=== PATIENT | female | born 1990 | race Caucasian/White ===

== ENCOUNTER 2020-10-02 12:41 | Emergency (ER) | payer OTHER, SELFPAY ==
--- NOTE | ~2020-10-02 | XR_ITS ---
XR chest 1V portable DATE: 10/02/2020 16:36 INDICATION: Midsternal chest pain for 3 days. Throat burning. TECHNIQUE: Portable AP chest on 10/02/2020 at 1637 hours COMPARISON: None FINDINGS: Normal heart size. No hilar or mediastinal enlargement. No pulmonary infiltrate or consolid ation, pleural effusion or pulmonary vascular congestion or pneumothorax. IMPRESSION: No active cardiopulmonary disease Reviewed, dictated and finalized at location A.
[2020-10-02 12:44] VITALS: BP 117/76; PULSE 65; RESP 20; TEMP 36.2; O2SAT 98
--- NOTE | 2020-10-02 12:47 | ECG_ITS ---
Measurements Intervals [place] Rate: 60 P: 66 SD: 173 QRS: 92 QRSD: 90 T: 66 QT: 386 QTc: 386 Interpretive Statements SINUS RHYTHM RIGHT AXIS DEVIATION INCOMPLETE RIGHT BUNDLE BRANCH BLOCK BASELINE WANDER- AVF BORDERLINE ECG Electronically Signed On 10-02-2020 17:45:19 CDT by Mil Carreon D.O.
[2020-10-02 13:26] VITALS: PULSE 56
--- NOTE | 2020-10-02 14:23 | ED.GENADULT ---
HPI - General Adult General Chief complaint: Chest Pain Stated complaint: CHEST PAIN Time Seen by Provider: 10/02/20 13:43 Source: patient and family Mode of arrival: ambulatory Limitations: no limitations History of Present Illness HPI narrative: Patient is a 30-year-old female who presents to emergency department for intermittent right substernal chest pain that is an aching pain present for 3 days denies any recent illness injury or trauma or other complaints no similar occurrence in the past does not take anything for her symptoms does have history of tobacco abuse Related Data Home Medications Medication Instructions Recorded Confirmed No Home Medications 10/02/20 10/02/20 Allergies Allergy/AdvReac Type Severity Reaction Status Date / Time No Known Allergies Allergy Verified 10/02/20 12:47 Review of Systems Review of Systems: All systems reviewed & are unremarkable except as noted in HPI and below PMFSH Surgical History Surgical History H/O tubal ligation Family History Family History Mother Hypertension Family history of elevated blood lipids Sibling Family history of malignant neoplasm of cervix Other Cerebrovascular accident Diabetes mellitus Family history of coronary artery disease Social History Social History (Updated 10/02/20 @ 14:24 by Darvin Dooley PA-C) Smoking status: Current every day smoker Second hand tobacco smoke exposure: No Smoking end date: 06/18/13 Alcohol intake: former Substance use: never Gender identity (if verbalized by the patient): Female Exam Narrative: Exam Narrative: GENERAL: Well-appearing, well-nourished, and in no acute distress. HEAD: Normocephalic, atraumatic. EYES: PERRLA and EOMI. ENT: Nares clear, no rhinorrhea or epistaxis. Mucous membranes moist. CHEST: Clear to auscultation. No respiratory distress. No wheezes rales or rhonchi HEART: Regular rate and rhythm. No murmur heard. Normal peripheral pulses. ABDOMEN: Soft, nontender, nondistended EXTREMITIES: Normal range of motion. No edema. SKIN: Warm, dry, no rash. NEURO: No focal deficits. Alert and oriented x3. PSYCH: Normal mood and affect. Course Course Emergency Course: Patient in the room no distress aware of case findings treatment plan and diagnosis agreeing to follow-up as instructed felt appropriate for outpatient reevaluation no high risk changes in the evaluation Vital Signs Vital signs: Vital Signs Temperature 97.2 F L 10/02/20 12:44 Pulse Rate 65 10/02/20 12:44 Respiratory Rate 20 10/02/20 12:44 Blood Pressure 117/76 10/02/20 12:44 Pulse Oximetry 98 10/02/20 12:44 Temperature 97.2 F L 10/02/20 12:44 Pulse Rate 61 10/02/20 16:20 Respiratory Rate 14 10/02/20 16:20 Blood Pressure 105/75 10/02/20 16:20 Pulse Oximetry 99 10/02/20 16:20 Medical Decision Making MDM Narrative Medical decision making narrative: Patients EKGs and labs are without significant high risk changes. Cardiac risk factors were reviewed. Patient is felt likely to be low risk for ACS and reasonable for further risk stratification testing as an outpatient. Pain was not sudden or maximal in onset without tearing or ripping. quality. No other signs or symptoms to suggest aortic dissection. A low-risk Wells criteria is noted. PE is felt to be unlikely. No pneumonia or URI symptoms were seen on evaluation today. Patient is felt to b reasonable for continued evaluation as an outpatient. Vital Signs Vital Signs: Vital Signs Temperature 97.2 F L 10/02/20 12:44 Pulse Rate 65 10/02/20 12:44 Respiratory Rate 20 10/02/20 12:44 Blood Pressure 117/76 10/02/20 12:44 Pulse Oximetry 98 10/02/20 12:44 Temperature 97.2 F L 10/02/20 12:44 Pulse Rate 61 10/02/20 16:20 Respiratory Rate 14 10/02/20 16:20 Blood Pressure 105/75 04
[2020-10-02 15:27] LABS: Troponin I < 0.012 ng/mL (0.000-0.034)
[2020-10-02 15:36] LABS: D Dimer 0.27 ug/mL (<0.48)
[2020-10-02 16:20] VITALS: BP 105/75; PULSE 61; RESP 14; O2SAT 99
[2020-10-02] MEDS: KETOROLAC (*BKC) 60 MG/2 ML VIAL IM (16:21)
[2020-10-02 17:08] VITALS: BP 113/71; PULSE 58; RESP 18; O2SAT 100
== END 2020-10-02 17:08 | disposition home or self-care (01) ==
PROVIDERS: Emergency Medicine Emergency Medical Services; Emergency Provider Emergency Medicine; PCP Family Medicine
DX: R07.2 Precordial pain (principal); Z87.891 Personal history of nicotine dependence; I45.10 Unspecified right bundle-branch block
CPT/HCPCS: 36415; 71045; 84484; 85380; 93005; 96372; 99284; J1885

== ENCOUNTER 2020-10-05 17:53 | Emergency (ER) | payer OTHER, SELFPAY ==
--- NOTE | ~2020-10-05 | XR_ITS ---
EXAMINATION: XR chest 1V portable 10/05/2020 21:46 INDICATION: Sternal chest pain PROCEDURE: AP portable chest COMPARISON: 10/02/2020 FINDINGS: The lungs are clear. The cardiomediastinal silhouette is within normal limits. There are no pleural effusions. There is no pneumothorax suspected. IMPRESSION: 1: NO ACUTE CARDIOPULMONARY DISEASE. Reviewed, dictated and finalized at location A.
[2020-10-05 18:32] VITALS: BP 111/70; PULSE 57; RESP 16; TEMP 36.7; O2SAT 100
--- NOTE | 2020-10-05 18:32 | ECG_ITS ---
Measurements Intervals [place] Rate: 59 P: 54 HI: 177 QRS: 33 QRSD: 77 T: 16 QT: 367 QTc: 365 Interpretive Statements SINUS BRADYCARDIA BORDERLINE ST-T WAVE ABNORMALITY- INFERIOR LEADS BASELINE ARTIFACT- I, III, AVL BORDERLINE ECG Electronically Signed On 10-05-2020 18:47:04 CDT by Mil Carreon D.O.
--- NOTE | 2020-10-05 21:37 | ED.CHESTPAIN ---
HPI - Chest Pain General Chief Complaint: Chest Pain <Darvin Dooley PA-C - Last Filed: 10/05/20 22:58> Stated Complaint: chest pain <Darvin Dooley PA-C - Last Filed: 10/05/20 22:58> Time Seen by Provider: 10/05/20 21:23 <Darvin Dooley PA-C - Last Filed: 10/05/20 22:58> Source: patient, family and old records reviewed <Darvin Dooley PA-C - Last Filed: 10/05/20 22:58> Mode of arrival: ambulatory <Darvin Dooley PA-C - Last Filed: 10/05/20 22:58> Limitations: no limitations <Darvin Dooley PA-C - Last Filed: 10/05/20 22:58> History of Present Illness HPI narrative: Patient a 30-year-old female who presents back to emergency department after being evaluated by primary care and instructed to come to the emergency department for continued midsternal chest pain that is been going on now for almost a week was seen in the emergency department on the had evaluation no high risk changes and was discharged home. Patient seen by primary care today was given cardiology follow-up and instructed to come back to the ER. Patient has mild aching pain of the mid sternum. <Darvin Dooley PA-C - Last Filed: 10/05/20 22:58> Related Data Allergies/Adverse Reactions: Allergies Allergy/AdvReac Type Severity Reaction Status Date / Time No Known Allergies Allergy Verified 10/02/20 12:47 <Darvin Dooley PA-C - Last Filed: 10/05/20 22:58> Review of Systems Review of Systems: All systems reviewed & are unremarkable except as noted in HPI and below <Darvin Dooley PA-C - Last Filed: 10/05/20 22:58> [facility] Surgical History Surgical History: Surgical History H/O tubal ligation <Darvin Dooley PA-C - Last Filed: 10/05/20 22:58> Family History Family History: Family History Mother Hypertension Family history of elevated blood lipids Sibling Family history of malignant neoplasm of cervix Other Cerebrovascular accident Diabetes mellitus Family history of coronary artery disease <Darvin Dooley PA-C - Last Filed: 10/05/20 22:58> Social History Social History: Social History Smoking status: Current every day smoker Second hand tobacco smoke exposure: No Smoking end date: 06/18/13 Alcohol intake: former Substance use: never Gender identity (if verbalized by the patient): Female <Darvin Dooley PA-C - Last Filed: 10/05/20 22:58> Exam Narrative: Exam Narrative: GENERAL: Well-appearing, well-nourished, and in no acute distress. HEAD: Normocephalic, atraumatic. EYES: PERRLA and EOMI. ENT: Nares clear, no rhinorrhea or epistaxis. Mucous membranes moist. CHEST: Clear to auscultation. No respiratory distress. No wheezes rales or rhonchi HEART: Regular rate and rhythm. No murmur heard. Normal peripheral pulses.. Reproducible mid chest wall tenderness to palpation ABDOMEN: Soft, nontender, nondistended EXTREMITIES: Normal range of motion. No edema. SKIN: Warm, dry, no rash. NEURO: No focal deficits. Alert and oriented x3. Cranial nerves II through XII grossly intact. Normal speech PSYCH: Normal mood and affect. <Darvin Dooley PA-C - Last Filed: 10/05/20 22:58> Course Course Emergency Course: Patient in the room no distress aware of case findings treatment plan diagnosis <Darvin Dooley PA-C - Last Filed: 10/05/20 22:58> Vital Signs Vital signs: Vital Signs Temperature 98.1 F 10/05/20 18:32 Pulse Rate 57 L 10/05/20 18:32 Respiratory Rate 16 10/05/20 18:32 Blood Pressure 111/70 10/05/20 18:32 Pulse Oximetry 100 10/05/20 18:32 Temperature 98.1 F 10/05/20 18:32 Pulse Rate 63 10/05/20 23:30 Respiratory Rate 18 10/05/20 23:30 Blood Pressure 113/65 10/05/20 23:30 Pulse Oximetry 99 10/05/20
[2020-10-05 22:38] LABS: Basophils Absolute Auto 0.1 K/mm3 (0.0-0.1); Basophils Percent Auto 0.6 % (0.2-1.2); Eosinophils Absolute Auto 0.2 K/mm3 (0-0.3); Eosinophils Percent Auto 1.9 % (0-4.4); Hematocrit 41.2 % (37.0-47.0); Hemoglobin 13.6 g/dL (12.0-15.0); Immature Granulocyte Absolute 0.04 K/mm3 (0.00-0.031); Immature Granulocyte Percent A 0.4 % (0-0.5); Lymphocytes Absolute Auto 3.37 K/mm3 (0.9-3.2); Lymphocytes Percent Auto 31.3 % (18.3-44.2); Mean Corpuscular Hemoglobin 29.6 pg (26-34); Mean Corpuscular Volume 89.8 fl (80-100); Mean Platelet Volume 10.4 fl (7.4-10.4); Monocytes Absolute Auto 0.7 K/mm3 (0.1-0.6); Neutrophils Absolute Auto 6.4 K/mm3 (1.3-6.7); Neutrophils Percent Auto 59.8 % (45.5-73.1); Platelet Count Result 230 k/mm3 (150-375); Red Blood Count 4.59 M/mm3 (4.2-5.4); Red Cell Distribution Width 12.2 % (11.5-14.5); White Blood Count 10.8 K/mm3 (4.5-10.0)
[2020-10-05 22:50] LABS: Alanine Aminotransferase 8 U/L (4-35); Albumin Level 4.9 g/dL (3.5-5.1); Alkaline Phosphatase 44 U/L (38-126); Anion Gap 7 mmol/L (8-16); Aspartate Amino Transferase 17 U/L (14-36); Bilirubin,Total 0.2 mg/dL (0.2-1.3); Blood Urea Nitrogen 11 mg/dL (7-17); Calcium 9.2 mg/dL (8.4-10.2); Carbon Dioxide 27 mmol/L (22-30); Chloride 106 mmol/L (98-107); Estimated CRCL calculation 83 ml/min; Estimated Glomerular Filt Rate > 60; Glucose 93 mg/dL (65-105); Lipase 253 U/L (23-300); Potassium 4.1 mmol/L (3.4-5.0); Sodium 140 mmol/L (137-145)
[2020-10-05 23:02] LABS: Troponin I < 0.012 ng/mL (0.000-0.034)
[2020-10-05 23:30] VITALS: BP 113/65; PULSE 63; RESP 18; O2SAT 99
== END 2020-10-05 23:40 | disposition home or self-care (01) ==
PROVIDERS: Emergency Medicine Emergency Medical Services; Emergency Provider General Practice; PCP Emergency Medicine
DX: R07.9 Chest pain, unspecified (principal)
CPT/HCPCS: 36415; 71045; 80053; 83690; 84484; 85025; 93005; 99284

== ENCOUNTER 2020-11-25 10:40 | Emergency (ER) | payer OTHER, SELFPAY ==
--- NOTE | ~2020-11-25 | US_ITS ---
EXAMINATION: US pelvic complete w TV EXAM DATE: 11/25/2020 13:00 INDICATION: Rule out torsion LLQ PAIN. TECHNIQUE: Pelvic transabdominal and transvaginal sonogram was performed. There are multiple graysca le and Doppler images available for interpretation. Comparison is made to prior examination from 02/05. FINDINGS: Uterus measures 8.1 x 4.1 x 5.1 cm, is anteverted and morphologically normal. Endometrial stripe measures 10 mm, within normal limits. There is no free pelvic fluid. Right adnexa: The ovary measures 3.3 x 2.0 x 1.8 cm and is morphologically normal. Ovarian vascular f low confirmed. Left adnexa: The ovary measures 3.2 x 2.0 x 2.9 cm and is morphologically normal, contains the domina nt physiologic follicle or small hemorrhagic cyst measuring up to 2.4 cm. Ovarian vascular flow confi rmed. IMPRESSION: 1. No acute findings. 2. Left ovarian dominant follicle and/or small hemorrhagic cyst Reviewed, dictated and finalized at location A.
[2020-11-25 10:50] VITALS: BP 120/76; PULSE 79; RESP 16; TEMP 36.8; O2SAT 100
--- NOTE | 2020-11-25 11:34 | ED.ABDPAIN ---
HPI - Abdominal Pain General Chief Complaint: Abdominal Pain Stated Complaint: Pelvic pain on my L side Time Seen by Provider: 11/25/20 10:48 Source: patient Mode of arrival: ambulatory Limitations: no limitations History of Present Illness HPI narrative: Patient is a 30-year-old female who presents complaining of left pelvic pain. She reports pain increases with palpation. She reports urinary frequency, denies dysuria or other complaints. She denies fever, nausea, vomiting, diarrhea or constipation. She has a history of a tubal ligation denies possibility of . She reports sudden onset set of pain at 0500 this a.m. She denies significant medical history. She denies all other complaints at this time. Patient reports pain is 8/10 and denies taking [id number] medications for pain prior to arrival. MD elicited complaint: other (pelvic pain) Pertinent past history: none Related Data Allergies Allergy/AdvReac Type Severity Reaction Status Date / Time No Known Allergies Allergy Verified 11/25/20 11:18 Review of Systems Review of Systems: Narrative: CONSTITUTIONAL: Denies fever, chills, or sweats. EYES: Denies visual changes, redness, or discharge. ENT: Denies rhinorrhea, congestion, sore throat, or otalgia. CARDIOVASCULAR: Denies chest pain, palpitations, or edema. RESPIRATORY: Denies cough or dyspnea. GASTROINTESTINAL: Denies abdominal pain, nausea, vomiting, or diarrhea. GENITOURINARY: Denies dysuria or hematuria. Reports left pelvic pain SKIN: Denies rash or itching. MUSCULOSKELETAL: Denies back pain, joint pain, or myalgia. NEUROLOGIC: Denies headache, numbness, dizziness, or weakness. PSYCHIATRIC: Denies anxiety or depression. [facility] Surgical History Surgical History H/O tubal ligation Family History Family History Mother Hypertension Family history of elevated blood lipids Sibling Family history of malignant neoplasm of cervix Other Cerebrovascular accident Diabetes mellitus Family history of coronary artery disease Social History Social History Smoking status: Current every day smoker Second hand tobacco smoke exposure: No Smoking end date: 06/18/13 Alcohol intake: former Substance use: never Gender identity (if verbalized by the patient): Female Comments At the time of signature, I have reviewed and agree with nursing past medical, surgical, social, and family history unless otherwise noted. Please see nursing chart for further information. There is no relevant family history pertinent to the presenting complaint. Exam Narrative: Exam Narrative: GENERAL: Well-appearing, well-nourished, and in no acute distress. HEAD: Normocephalic, atraumatic. EYES: No redness or drainage. Conjunctiva are normal. ENT: Mucous membranes pink and moist. CHEST: No respiratory distress. Clear to auscultation. HEART: Regular rate and rhythm. No murmur appreciated. Normal peripheral pulses. GI: Soft, nontender without rebound, or guarding. No distention. Bowel sounds normal in all quadrants. : Left pelvic pain with palpation. MUSCULOSKELETAL: No bony tenderness. EXTREMITIES: Normal range of motion. No edema. SKIN: Warm, dry, no rash. NEURO: No focal deficits. Alert and oriented x3. Gait steady. PSYCH: Normal affect. No signs of depression or anxiety. Course Vital Signs Vital signs: Vital Signs Temperature 36.8 C 11/25/20 10:50 Pulse Rate 79 11/25/20 10:50 Respiratory Rate 16 11/25/20 10:50 Blood Pressure 120/76 11/25/20 10:50 Pulse Oximetry 100 11/25/20 10:50 Temperature 36.8 C 11/25/20 10:50 Pulse Rate 67 11/25/20 14:34 Respiratory Rate 16 11/25/20 14:34 Blood Pressure 107/64 11/25/20 14:34 Pulse Oximetry 99 11/25/20 14:34 Reviewed MDM - Abdominal Pain MDM Narrative
[2020-11-25 11:48] LABS: Basophils Absolute Auto 0.1 K/mm3 (0.0-0.1); Basophils Percent Auto 0.6 % (0.2-1.2); Eosinophils Absolute Auto 0.2 K/mm3 (0-0.3); Eosinophils Percent Auto 2.1 % (0-4.4); Hematocrit 44.7 % (37.0-47.0); Hemoglobin 14.6 g/dL (12.0-15.0); Immature Granulocyte Absolute 0.04 K/mm3 (0.00-0.031); Immature Granulocyte Percent A 0.4 % (0-0.5); Lymphocytes Absolute Auto 2.26 K/mm3 (0.9-3.2); Lymphocytes Percent Auto 21.2 % (18.3-44.2); Mean Corpuscular HGB Conc 32.7 g/dl (32-36); Mean Corpuscular Hemoglobin 29.3 pg (26-34); Mean Corpuscular Volume 89.6 fl (80-100); Mean Platelet Volume 10.3 fl (7.4-10.4); Monocytes Absolute Auto 0.7 K/mm3 (0.1-0.6); Monocytes Percent Auto 6.7 % (2.6-8.5); Neutrophils Absolute Auto 7.4 K/mm3 (1.3-6.7); Platelet Count Result 255 k/mm3 (150-375); Red Blood Count 4.99 M/mm3 (4.2-5.4); Red Cell Distribution Width 12.5 % (11.5-14.5); White Blood Count 10.6 K/mm3 (4.5-10.0)
[2020-11-25 11:51] LABS: Add Urine Microscopic? YES; Appearance Urine Clear (Clear); Bacteria Urine Trace /hpf; Bilirubin Urine Negative (Negative); Blood Urine Negative (Negative); Color Urine Straw (Yellow); Glucose Urine UA Negative (Negative); Ketones Urine Negative (Negative); Leukocyte Esterase Ur Trace LEU/UL (Negative); Nitrate Urine Negative (Negative); Protein Urine Negative (Negative); RBC Urine 0-2 /hpf (0-2); Specific Grav Ur 1.006 (1.001-1.035); Squamous Epithelial Cell Urine Occasional /hpf (Few); Urobilinogen Urine Negative mg/dL (<2.0)
[2020-11-25 11:58] LABS: Alanine Aminotransferase 8 U/L (4-35); Albumin Level 4.5 g/dL (3.5-5.1); Alkaline Phosphatase 35 U/L (38-126); Anion Gap 9 mmol/L (8-16); Aspartate Amino Transferase 17 U/L (14-36); Bilirubin,Total 0.3 mg/dL (0.2-1.3); Blood Urea Nitrogen 6 mg/dL (7-17); Calcium 9.3 mg/dL (8.4-10.2); Carbon Dioxide 25 mmol/L (22-30); Chloride 108 mmol/L (98-107); Estimated CRCL calculation 94 ml/min; Estimated Glomerular Filt Rate > 60; Glucose 87 mg/dL (65-105); Lipase 120 U/L (23-300); Potassium 3.9 mmol/L (3.4-5.0); Sodium 142 mmol/L (137-145)
[2020-11-25 14:34] VITALS: BP 107/64; PULSE 67; RESP 16; O2SAT 99
== END 2020-11-25 14:37 | disposition home or self-care (01) ==
PROVIDERS: Emergency Medicine; Emergency Provider Nurse Practitioner; PCP Emergency Medicine
DX: N83.202 Unspecified ovarian cyst, left side (principal); N39.0 Urinary tract infection, site not specified
CPT/HCPCS: 36415; 76830; 76856; 80053; 81001; 81025; 83690; 85025; 99284

== ENCOUNTER 2021-02-01 07:51 | Outpatient (CLI) | payer OTHER, SELFPAY ==
--- NOTE | ~2021-02-01 | CT_ITS ---
EXAMINATION: CT shoulder RT w con DATE: 02/01/2021 08:37 INDICATION: Posterior right shoulder mass with pain and swelling TECHNIQUE: High resolution computed tomography (CT) of the right shoulder was performed without intra venous contrast. Additional sagittal and coronal reconstructions were performed. Automated exposure c ontrol and iterative reconstruction technique were employed. The dose-length product was 155.97 mGy-c m. COMPARISON: Right shoulder radiographs dated 01/06/2015 FINDINGS: Bone alignment is normal. No fracture. Glenohumeral and acromioclavicular joint spaces are normal. No glenohumeral joint effusion. Soft tissues are unremarkable with no abnormal soft tissue mass or flui d collections identified. No evident edema or inflammatory fat stranding. Normal right axillary lymph nodes which are comprised primarily of prominent central fatty bibi. Brachial plexus appears unremar kable. Minimal paraseptal emphysema scattered along the periphery of the right upper lobe. Calcified right paratracheal lymph node consistent with old granulomatous disease. IMPRESSION: 1. Normal right shoulder with no abnormal masses or fluid collections identified. Reviewed, dictated and finalized at location A. IMPRESSION: 1. Normal right shoulder with no abnormal masses or fluid collections identifie d.
== END 2021-02-01 07:52 | disposition home or self-care (01) ==
PROVIDERS: PCP Emergency Medicine; Visit Provider Surgery
DX: R22.31 Localized swelling, mass and lump, right upper limb (principal)
CPT/HCPCS: 73201; Q9967

== ENCOUNTER 2021-08-22 09:45 | Emergency (ER) | payer OTHER, SELFPAY ==
[2021-08-22 09:53] VITALS: BP 105/64; PULSE 68; RESP 16; TEMP 35.8; O2SAT 100
--- NOTE | 2021-08-22 09:55 | ED.SKABFB ---
HPI - Skin/Abscess/Foreign Bdy General Chief complaint: Skin/Abscess/Foreign Body Stated complaint: Knot behind Ear Time Seen by Provider: 08/22/21 09:55 Source: patient, RN notes reviewed and old records reviewed Mode of arrival: ambulatory Limitations: no limitations History of Present Illness HPI narrative: 31-year-old female presents to the [facility] with a red raised area in the hairline behind right ear. No treatment prior to arrival. States is been there 1-2 days Related Data Allergies Allergy/AdvReac Type Severity Reaction Status Date / Time No Known Allergies Allergy Verified 08/22/21 10:06 Review of Systems Review of Systems: All systems reviewed & are unremarkable except as noted in HPI and below Constitutional: Constitutional: Reports no additional constitutional complaints, Denies chills and Denies fever(s) Eyes: Eyes: Reports no additional eye complaints ENT: Reports system reviewed and no additional complaints, except as documented Cardiovascular: Cardiovascular: Reports no additional cardiovascular complaints, Denies chest pain and Denies dyspnea Respiratory: Respiratory: Reports no additional respiratory complaints, Denies cough and Denies dyspnea Gastrointestinal: Gastrointestinal: Reports no additional gastrointestinal complaints, Denies abdominal pain, Denies nausea and Denies vomiting Musculoskeletal: Musculoskeletal: Reports no additional musculoskeletal complaints Integumentary/Breasts: Skin/Breast: Reports as per HPI and Reports erythema (Half centimeter red raised area behind right ear, hairline) Neurologic: Reports system reviewed and no additional complaints, except as documented Psychiatric: Psychiatric: Reports no additional psychiatric complaints Allergic/Immunologic: Allergic/Immunologic: Reports no additional allergic/immunologic complaints PMFSH Surgical History Surgical History H/O tubal ligation Family History Family History Mother Hypertension Family history of elevated blood lipids Sibling Family history of malignant neoplasm of cervix Other Cerebrovascular accident Diabetes mellitus Family history of coronary artery disease Social History Social History Smoking status: Current every day smoker Second hand tobacco smoke exposure: No Smoking end date: 06/18/13 Alcohol intake: former Substance use: never Gender identity (if verbalized by the patient): Female Comments At the time of my signature, I reviewed and agree with the nursing past medical, surgical, social, and family history. There is no relevant family history pertinent to the patient complaint. Exam Const: General: cooperative, healthy appearing, no acute distress, well developed, alert and awake Nutritional Appearance: well nourished Orientation/consciousness: patient oriented x3 Limitations: no limitations HENMT: Head: normal to inspection and No palpable skull fracture present Ears: hearing grossly normal bilaterally, external ears normal, TM's normal bilaterally and EAC's normal General nose exam: Normal external nose present Face and sinus: normal facial exam and face symmetric Eyes: Pupils: Equal, round and reactive pupils present Neck: Neck: normal visual inspection, no lymphadenopathy and no meningeal signs Chest: Chest palpation & inspection: normal inspection of the chest Resp: Effort & Inspection: normal respiratory effort and no use of accessory muscles Auscultation: clear to auscultation bilaterally, no crackles, no rales, no rhonchi and no wheezes Cardio: Rate: regular rate Rhythm: regular rhythm Skin: Wounds: no wounds Other: Half centimeter red raised area without increased warmth noted. Wide fluctuant top. Neuro: General: patient oriented x3, gait normal, moves all extremities, no meningeal signs
== END 2021-08-22 10:05 | disposition home or self-care (01) ==
PROVIDERS: Emergency Provider Nurse Practitioner; PCP Emergency Medicine
DX: L73.1 Pseudofolliculitis barbae (principal); Z87.891 Personal history of nicotine dependence
CPT/HCPCS: 87070; 87075; 87147; 87181; 87186; 87205; 99213; G0463

== ENCOUNTER 2023-06-24 19:50 | Emergency (ER) | payer OTHER, SELFPAY ==
--- NOTE | ~2023-06-24 | XR_ITS ---
EXAMINATION: XR chest 2V DATE: 06/24/2023 20:30 INDICATION: Chest pain TECHNIQUE: PA and lateral views of the chest are obtained. COMPARISON: 10/05/2020 FINDINGS: The lungs are free of acute opacities. No pleural effusion or pneumothorax. The cardiomedia stinal silhouette is normal. The visualized bones and soft tissues are unremarkable. IMPRESSION: 1. No acute cardiopulmonary abnormality. Reviewed, dictated and finalized at location F. T OPERATIONS COORDINATOR
--- NOTE | 2023-06-24 19:50 | ECG_ITS ---
Measurements Intervals [place] Rate: 81 P: 60 MN: 175 QRS: 37 QRSD: 80 T: 33 QT: 368 QTc: 427 Interpretive Statements SINUS RHYTHM BORDERLINE ST-T WAVE ABNORMALITY- DIFFUSE LEADS BASELINE ARTIFACT- I, III, AVR, AVL, AVF, V1-V6 BORDERLINE ECG COMPARED TO ECG 10/05/2020 18:39:06 SINUS RHYTHM NOW PRESENT NO SIGNIFICANT CHANGES Electronically Signed On 06-25-2023 6:49:45 INVERTEBRATE PALEONTOLOGIST by Mil Carreon D.O.
[2023-06-24 20:00] VITALS: BP 113/75; PULSE 74; RESP 16; TEMP 36.6; O2SAT 100
[2023-06-24 20:07] LABS: Basophils Absolute Auto 0.1 K/mm3 (0.0-0.1); Basophils Percent Auto 0.7 % (0.2-1.2); Eosinophils Absolute Auto 0.4 K/mm3 (0-0.3); Eosinophils Percent Auto 3.5 % (0-4.4); Hematocrit 39.8 % (37.0-47.0); Hemoglobin 13.2 g/dL (12.0-15.0); Immature Granulocyte Absolute 0.02 K/mm3 (0.00-0.031); Immature Granulocyte Percent A 0.2 % (0-0.5); Lymphocytes Percent Auto 31.5 % (18.3-44.2); Mean Corpuscular HGB Conc 33.2 g/dl (32-36); Mean Corpuscular Hemoglobin 29.3 pg (26-34); Mean Corpuscular Volume 88.2 fl (80-100); Mean Platelet Volume 10.1 fl (7.4-10.4); Monocytes Absolute Auto 0.9 K/mm3 (0.1-0.6); Monocytes Percent Auto 8.8 % (2.6-8.5); Neutrophils Absolute Auto 5.6 K/mm3 (1.3-6.7); Neutrophils Percent Auto 55.3 % (45.5-73.1); Platelet Count Result 268 k/mm3 (150-375); Red Blood Count 4.51 M/mm3 (4.2-5.4); Red Cell Distribution Width 12.4 % (11.5-14.5); White Blood Count 10.2 K/mm3 (4.5-10.0)
[2023-06-24 20:21] LABS: Alanine Aminotransferase 10 U/L (6-35); Albumin Level 4.4 g/dL (3.5-5.1); Alkaline Phosphatase 47 U/L (38-126); Anion Gap 9 mmol/L (8-16); Aspartate Amino Transferase 22 U/L (14-36); Bilirubin,Total 0.4 mg/dL (0.2-1.3); Blood Urea Nitrogen 10 mg/dL (7-17); Calcium 9.2 mg/dL (8.4-10.2); Carbon Dioxide 23 mmol/L (22-30); Chloride 107 mmol/L (98-107); Estimated CRCL calculation 94 ml/min; Estimated Glomerular Filt Rate > 60; Glucose 93 mg/dL (65-110); Lipase 391 U/L (23-300); Potassium 3.8 mmol/L (3.4-5.0); Sodium 139 mmol/L (137-145)
[2023-06-24 20:32] LABS: Troponin I < 0.012 ng/mL (0.000-0.034)
[2023-06-24 20:44] LABS: Partial Thromboplastin Time 29.5 SECONDS (22.3-36.8); Prothrombin Time 13.7 Seconds (11.1-14.7)
--- NOTE | 2023-06-24 23:12 | ECG_ITS ---
Measurements Intervals [place] Rate: 72 P: 76 WI: 212 QRS: 55 QRSD: 74 T: 42 QT: 384 QTc: 422 Interpretive Statements SINUS RHYTHM WITH SINUS ARRHYTHMIA WITH FIRST DEGREE AV BLOCK BORDERLINE T WAVE ABNORMALITY- ANTERIOR LEADS BASELINE ARTIFACT- I, II, III, AVR, AVL, AVF, V1-V6 BORDERLINE ECG COMPARED TO ECG 06/24/2023 19:57:09 SINUS ARRHYTHMIA NOW PRESENT FIRST DEGREE AV BLOCK NOW PRESENT Electronically Signed On 06-25-2023 6:57:23 SPANNER OPERATOR by Mil Carreon D.O.
[2023-06-24 23:47] LABS: Troponin I < 0.012 ng/mL (0.000-0.034)
[2023-06-25 00:14] VITALS: BP 115/67; PULSE 49; RESP 17; O2SAT 100
[2023-06-25 00:16] VITALS: BP 107/65; PULSE 49; RESP 7; O2SAT 100
--- NOTE | 2023-06-25 01:00 | ED.CHESTPAIN ---
HPI - Chest Pain General Chief Complaint: Chest Pain Stated Complaint: chest pain Time Seen by Provider: 06/25/23 00:35 Source: patient Mode of arrival: ambulatory Limitations: no limitations History of Present Illness HPI narrative: Patient is a 33-year-old female who presents the ED with report of right-sided chest pain. Patient reports pain has been intermittent for the last couple of weeks, but became were severe and constant today. Pain worse with deep breathing, coughing. She notes she had influenza a few weeks ago and has had a mild persistent cough. She tried taking ibuprofen for her pain today but denied improvement. Denies significant shortness of breath. Denies lower extremity pain or swelling. Denies fevers, abdominal pain, N/V. Patient denies previous cardiac issues. Denies history of hypertension, hyperlipidemia, diabetes, family history of heart disease. She is a smoker. Related Data Allergies Allergy/AdvReac Type Severity Reaction Status Date / Time No Known Allergies Allergy Verified 06/25/23 01:20 Review of Systems Review of Systems: CONSTITUTIONAL: Denies fever, chills, or sweats. CARDIOVASCULAR: See HPI. RESPIRATORY: See HPI. GASTROINTESTINAL: Denies abdominal pain, nausea, vomiting, or diarrhea. All systems reviewed & are unremarkable except as noted in HPI and below PMFSH Surgical History Surgical History H/O tubal ligation Family History Family History Mother Hypertension Family history of elevated blood lipids Sibling Family history of malignant neoplasm of cervix Other Cerebrovascular accident Diabetes mellitus Family history of coronary artery disease Social History Social History Smoking status: Current every day smoker Second hand tobacco smoke exposure: No Smoking end date: 06/18/13 Alcohol intake: former Substance use: never Gender identity (if verbalized by the patient): Female Exam Narrative: GENERAL: Anxious appearing, thin, non-toxic, in no acute distress. HEAD: Normocephalic, atraumatic. RESPIRATORY: Airway patent, respirations nonlabored. Clear to auscultation bilaterally, no rales, rhonchi, wheezing. CARDIOVASCULAR: Tachycardic with regular rhythm without murmurs, rubs, or gallops. ABDOMINAL: Soft, nontender, nondistended. Normoactive BS. MUSCULOSKELETAL: Moves all extremities. No gross deformities. Right-sided anterior chest wall tenderness to palpation, producing pain. SKIN: Warm, dry, normal color. NEURO: A&O X3. Speech clear. Cranial nerves II-XII grossly intact. Steady gait. No ataxic movements. PSYCHIATRIC: Tearful, anxious. Normal interaction. Course Vital Signs Vital signs: Vital Signs Temperature 98 F 06/24/23 20:00 Pulse Rate 74 06/24/23 20:00 Respiratory Rate 16 06/24/23 20:00 Blood Pressure 113/75 06/24/23 20:00 Pulse Oximetry 100 06/24/23 20:00 Oxygen Delivery Room Air 06/24/23 20:00 Temperature 98 F 06/24/23 20:00 Pulse Rate 58 L 06/25/23 02:00 Respiratory Rate 20 06/25/23 02:00 Blood Pressure 122/70 06/25/23 02:00 Pulse Oximetry 100 06/25/23 02:00 Oxygen Delivery Room Air 06/24/23 20:00 MDM - Chest Pain MDM Narrative Medical decision making narrative: Patient presented to ED with several week history of right-sided chest pain, worsened & constant since today. Pleuritic nature to pain. Vitals stable upon arrival. Upon my evaluation, patient was tachycardic, very anxious, tearful. Anterior chest wall tenderness to palpation on exam, reproducing pain. Does report recent influenza infection. CXR clear. No focal consolidation. EKG without concerning changes. Troponin negative x2. HEART score = 1 based on smoking Hx. No significant RFs for ACS. D-dimer within normal limits. Remainder
[2023-06-25 01:01] VITALS: BP 114/71; PULSE 51; RESP 13; O2SAT 100
[2023-06-25] MEDS: ACETAMINOPHEN 500 MG TABLET 1000 MG PO (01:18)
[2023-06-25 01:38] LABS: D Dimer < 0.27 ug/mL (<0.48)
[2023-06-25 02:00] VITALS: BP 122/70; PULSE 58; RESP 20; O2SAT 100
[2023-06-25] MEDS: KETOROLAC (*BKC) 60 MG/2 ML VIAL IM (02:40)
== END 2023-06-25 02:46 | disposition home or self-care (01) ==
PROVIDERS: Emergency Medicine; Emergency Provider Physician Assistant; PCP Emergency Medicine
DX: R07.89 Other chest pain (principal); F17.200 Nicotine dependence, unspecified, uncomplicated; R94.31 Abnormal electrocardiogram [ECG] [EKG]
CPT/HCPCS: 36415; 71046; 80053; 83690; 84484; 85025; 85380; 85610; 85730; 93005; 96372; 99284; A9270; J1885

== ENCOUNTER 2023-06-26 10:23 | Outpatient (CLI) | payer OTHER, SELFPAY ==
[2023-06-29 06:19] LABS: Prolactin 12.3 ng/mL (***)
== END 2023-06-26 10:24 | disposition home or self-care (01) ==
LOC: ANHLAB 10:25
PROVIDERS: PCP Emergency Medicine; Visit Provider Registered Nurse
DX: N64.52 Nipple discharge (principal)
CPT/HCPCS: 36415; 84146

== ENCOUNTER 2023-07-13 08:25 | Outpatient (CLI) | payer OTHER, SELFPAY ==
--- NOTE | ~2023-07-13 | MMUS_ITS ---
EXAMINATION: MM diagnostic jason BI w asaf, US breast RT limited HISTORY: Palpable lump in the upper outer quadrant of the right breast TECHNIQUE: Craniocaudal, mediolateral, and mediolateral oblique 3-D tomosynthesis images of the tera ts were performed and synthetic 2-D images were generated. CAD analysis was submitted and interpreted . High resolution limited right breast ultrasound was performed. COMPARISON: 04/10/2017, 02/11/2017 BREAST PARENCHYMAL COMPOSITION: The breasts are extremely dense, which lowers the sensitivity of mamm ography. FINDINGS: MAMMOGRAPHIC FINDINGS: No suspicious mass, calcification, or architectural distortion are identified in either breast to sug gest malignancy. No mammographic correlate is identified for the reported palpable abnormality of con cern in the right breast. ULTRASOUND: There is no evidence of focal abnormal solid or cystic mass in the vicinity of the reported palpable abnormality of concern in the right breast. IMPRESSION: 1. No specific mammographic or sonographic correlate is identified for the reported palpable abnormal ity of concern in the right breast. Further evaluation at this time should be based on clinical asses sment. Continued follow-up physical examination is recommended. 2. Recommend routine screening mammography beginning at age 40. BI-RADS Category 1: Negative Reviewed, dictated and finalized at location A. [employer] IMPRESSION: 1. No specific mammographic or sonographic correlate is identified for the repo rted palpable abnormality of concern in the right breast. Further evaluation at this time should be based on clinical assessment. Continued follow-up physical examination is recommended. 2. Recommend routine screening mammography beginning at age 40. BI-RADS Category 1: Negative
== END 2023-07-13 08:26 | disposition home or self-care (01) ==
LOC: ANHIMG 08:27
PROVIDERS: PCP Emergency Medicine; Visit Provider Registered Nurse
DX: N63.0 Unspecified lump in unspecified breast (principal)
CPT/HCPCS: 76642; 77062; 77066; G0279